=== PATIENT | female | born 1980 | race Caucasian/White ===

== ENCOUNTER 2018-06-29 10:16 | Emergency (ER) | payer OTHER ==
[~2018-06-29] VITALS: Ht 180.3 cm; Wt 111.1 kg
[~2018-06-29 10:16] MED LIST: DOLOGESIC CAPLE1 TAB PO; TUSICOF LIQUID120 ML PO
== END 2018-06-29 16:38 | disposition home or self-care (01) ==
LOC: ER 10:16
DX: R06.02 Shortness of breath (principal); R00.2 Palpitations; F06.4 Anxiety disorder due to known physiological condition